=== PATIENT | male | born 1970 ===

== ENCOUNTER → 2020-09-11 16:28 | Outpatient (BNVA) | payer OTHER, SELFPAY | PROVIDERS: Family Provider Family Medicine; PCP Family Medicine; Visit Provider Family Medicine | DX: Z00.00 Encounter for general adult medical examination without abnormal findings; I10 Essential (primary) hypertension; E11.65 Type 2 diabetes mellitus with hyperglycemia | CPT/HCPCS: 80048; 83036 ==

== ENCOUNTER → 2022-06-26 12:07 | Outpatient (BNVA) | payer OTHER, SELFPAY | PROVIDERS: Family Provider Family Medicine; PCP Family Medicine; Visit Provider Family Medicine | DX: E11.65 Type 2 diabetes mellitus with hyperglycemia (principal) | CPT/HCPCS: 80053; 83036 ==

== ENCOUNTER 2023-07-10 16:47 | Emergency (ER) | payer OTHER, SELFPAY ==
[2023-07-10] VITALS (7 sets, daily range): BP systolic 140–211; BP diastolic 94–148; PULSE 76–89; RESP 16–21; TEMP 36.7; O2SAT 94–97; BMI 38.7
[2023-07-10 17:19] LABS: Basophils # 0.1 10^3/uL (0.0-0.1); Basophils % 0.6 %; Eosinophils # 0.2 10^3/uL (0.0-0.8); Eosinophils % 2.8 %; Hematocrit 43.4 % (37-53); Lymphocytes # 1.9 10^3/uL (0.8-4.8); Lymphocytes % 24.1 %; Mean Corpuscular HGB Conc 35.3 g/dL (30-55); Mean Corpuscular Hemoglobin 29.5 pg (27-33); Mean Corpuscular Volume 83.6 fl (82-101); Mean Platelet Volume 9.6 fL (7.4-10.4); Monocytes # 0.5 10^3/uL (0.2-0.9); Monocytes % 6.5 %; Neutrophils # 5.22 10^3/uL (1.8-7.7); Neutrophils % 65.7 %; Nucleated Red Blood Cells % 0 %; Platelet Count 242 10^3/cmm (157-399); Red Blood Count 5.19 10^6/uL (3.85-5.65); Red Cell Distribution Width 12.4 % (12.1-15.1); White Blood Count 7.94 10^3/uL (3.29-11.43)
--- NOTE | 2023-07-10 17:20 | ECG_ITS ---
[facility] Test Date: 2023-07-10 Pat Name: Carlotta Levy Department: Room: Gender: Male [employer]: : 1970 Requested By: Natacha Gill Order Number: [id number] Arthur MD: Micheal Mckenzie M.D. Measurements Intervals Wilson Rate: 81 P: 38 AL: 211 QRS: 3 QRSD: 77 T: 41 QT: 344 QTc: 400 Interpretive Statements SINUS RHYTHM WITH FIRST DEGREE AV BLOCK MODERATE VOLTAGE CRITERIA FOR LVH, CONSIDER NORMAL VARIANT [MEETS CRITERIA IN ONE OF: R(aVL), S(V1), R(V5), R(V5/V6)+S(V1)] No previous ECG available for comparison Electronically Signed On 07-10-2023 21:24:38 CDT by Micheal Mckenzie M.D. [id number]
[2023-07-10] MEDS: labetalol 5 mg/mL SDV 20mL 10 MG IVP (17:29)
--- NOTE | 2023-07-10 17:32 | W.ED.GENADLT ---
HPI - General Adult General: Chief complaint: General Medical Stated complaint: high bp Time Seen by Provider: 07/10/23 17:09 Source: patient Mode of arrival: ambulatory Limitations: no limitations History of Present Illness: 53-year-old male he has a history of high blood pressure he states that he is on hydrochlorothiazide and losartan he states that he is prescribed 50 mg losartan but only takes 25 in the morning. He states that his and got a blood pressure cuff machine he has been taking his blood pressures week and its been running high. Here is 208/118 he states that he had a mild headache yesterday he has had no chest pains states he feels fine otherwise. Associated symptoms: Reports headache(s); Deny chest pain, dyspnea, nausea, rash or vomiting Review of Systems Const: Denies: fever(s) or chills Eyes: Denies: blurry vision ENMT: Denies: throat pain or dental pain Card: Denies: chest pain Resp: Denies: dyspnea GI: Denies: abdominal pain, nausea, vomiting or diarrhea Musc: Denies: neck pain or back pain Skin/Breast: Denies: rash Neuro: Reports: headache(s) [facility] ED PFSH: Medical History Diabetes Hypertension Social History Smoking and tobacco status: never smoked Alcohol intake: never Substance/Drug Use: never Physical Exam Const: COMMON NORMALS: no acute distress, patient oriented x3 and healthy appearing HENMT: COMMON NORMALS: normocephalic and atraumatic HEAD & SCALP: normocephalic and atraumatic Neck/C-Spine: COMMON NORMALS: full ROM and supple Chest: COMMONS NORMALS: normal inspection of the chest and normal palpation of entire chest wall Resp: COMMON NORMALS: normal respiratory effort, No retractions, No use of accessory muscles and clear to auscultation bilaterally AUSCULTATION: clear to auscultation bilaterally Cardio: COMMON NORMALS: regular rate, regular rhythm and No murmurs present (Cardio) RATE: regular rate RHYTHM: regular rhythm GI: COMMON NORMALS: Normal to inspection, nondistended, normoactive bowel sounds present, Soft to palpation, non-tender and no masses PALPATION: Yes Soft to palpation Extremity: COMMON NORMALS: normal to inspection and full ROM Neuro: COMMON NORMALS: patient oriented x3, moves all extremities and no focal motor deficits Psych: COMMON NORMALS: mental status grossly normal, Normal thought process present and cooperative THOUGHT PROCESS: Normal thought process present Skin: COMMON NORMALS: no rashes or lesions noted and no wounds GENERAL SKIN EXAM: no rashes or lesions noted Course Vital Signs: Vital signs: Vital Signs Temperature 98.0 F 07/10/23 16:56 Pulse Rate 85 07/10/23 18:38 Respiratory Rate 17 07/10/23 18:38 Blood Pressure 211/131 07/10/23 18:38 Pulse Oximetry 97 07/10/23 18:38 Oxygen Delivery Me thod Room Air 07/10/23 18:38 MDM - General Adult Medical Decision Making Patient presents with hypertension his blood pressure here is improved he has been asymptomatic we will increase his losartan to 50 mg twice a day he is to keep a log of his blood pressure follow-up with PCP and return if worsening he understands agrees to plan. Medical Records I reviewed the patient's medical records. Lab Data I reviewed the patient's lab results. 07/10/23 17:16 07/10/23 17:16 Laboratory Results WBC 7.94 10^3/uL (3.29-11.43) 07/10/23 17:16 RBC 5.19 10^6/uL (3.85-5.65) 07/10/23 17:16 Hgb 15.30 g/dL (11.27-16.99) 07/10/23 17:16 Hct 43.4 % (37-53) 07/10/23 17:16 MCV 83.6 fl (82-101) 07/10/23 17:16 MCH 29.5 pg (27-33) 07/10/23 17:16 MCHC 35.3 g/dL (30-55) 07/10/23 17:16 RDW 12.4 % (12.1-15.1) 07/10/23 17:16 Plt Count 242 10^3/cmm (157-399) 07/10/23 17:16 MPV 9.6 fL (7.4-10.4) 07/10/23 17:16 Neut % (Auto) 65.7 % 07/10/23 17:16 Lymph % (Auto) 24.1 % 07/10/23 17:16 [place] % (Auto) 6.5 % 07/10/23 17:16 Eos % (Auto) 2.8 % 07/10/23 17:16 Baso % (Auto) 0.6 % 07/10/23 17:16 Neut # (Auto) 5.22 10^3/uL (1.8-7.7) 07/10/23 17:16 Lymph # (Auto) 1.9 10^3/uL (0.8-4.8) 07/10/23 17:16 [place] # (Auto) 0.5 10^3/uL (0.2-0.9) 07/10/23 17:16 Eos # (Auto) 0.2 10^3/uL (0.0-0.8) 07/10/23 17:16 Baso # (Auto) 0.1 10^3/uL (0.0-0.1) 07/10/23 17:16 Nucleated RBC % (auto) 0 % 07/10/23 17:16 Nucleated RBCs # 0.0 /100WBC 07/10/23 17:16 Sodium 137 mmol/L (136-145) 07/10/23 17:16 Potassium 3.7 mmol/L (3.5-5.1) 07/10/23 17:16 Chloride 98 mmol/L (98-107) 07/10/23 17:16 Carbon Dioxide 30 mmol/L (22-29) H 07/10/23 17:16 Anion Gap 12.7 (5-19) 07/10/23 17:16 BUN 15 mg/dL (6-20) 07/10/23 17:16 Creatinine 1.3 mg/dL (0.7-1.2) H 07/10/23 17:16 GFR Calculation 57.3 mL/min (90-130) L 07/10/23 17:16 Glucose 178 mg/dL (65-115) H 07/10/23 17:16 Calculated Osmolality 289 mOsm/kg (285-295) 07/10/23 17:16 Calcium 9.1 mg/dL (8.5-10.5) 07/10/23 17:16 Total Bilirubin 0.3 mg/dL (0.15-1.2) 07/10/23 17:16 AST 19 U/L (0-40) 07/10/23 17:16 ALT 31 U/L (0-41) 07/10/23 17:16 Alkaline Phosphatase 82 U/L (40-130) 07/10/23 17:16 Total Protein 7.5 g/dL (6.6-8.7) 07/10/23 17:16 Albumin 4.5 g/dL (3.5-5.2) 07/10/23 17:16 Globulin 3.0 g/dL (1.3-4.6) 07/10/23 17:16 EKG Data EKG 1: I personally reviewed and interpreted this EKG as follows: EKG interpretation date: 07/10/23 EKG interpretation time: 17:28 Interpretation: nsr hr [address] or t wave abnormalities qrs 77 qtc 381 Discharge Plan Discharge Patient Disposition: Home Clinical Impression: Hypertension Condition: Stable Prescriptions: New losartan 50 mg tablet 50 mg PO BID Qty: 60 0RF Discontinued losartan 50 mg tablet See Rx Instructions .ROUTE .COMPLEX Qty: 90 1RF Dose Instruction: TAKE ONE TABLET BY MOUTH DAILY Rx Instructions: TAKE ONE TABLET BY MOUTH DAILY No Action glipizide 5 mg tablet 5 mg PO BID Qty: 120 1RF hydrochlorothiazide 25 mg tablet See Rx Instructions .ROUTE .COMPLEX Qty: 90 0RF Dose Instruction: TAKE ONE TABLET BY MOUTH EVERY DAY Rx Instructions: TAKE ONE TABLET BY MOUTH EVERY DAY Discharge Orders: Discharge ED (Routine); Ordered 07/10/23 Ordered By: Natacha Gill Referrals: Aj Edward MD [Primary Care Provider] - 1-3 days Discharge Diet: Advance as tolerated Discharge Activity: Resume usual activity Patient Instructions: Hypertension (ED) Coding Level of Care Code ED Track 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
[2023-07-10 17:35] LABS: Alanine Aminotransferase 31 U/L (0-41); Albumin Level 4.5 g/dL (3.5-5.2); Alkaline Phosphatase 82 U/L (40-130); Anion Gap 12.7 (5-19); Aspartate Amino Transferase 19 U/L (0-40); Blood Urea Nitrogen 15 mg/dL (6-20); Calcium 9.1 mg/dL (8.5-10.5); Carbon Dioxide 30 mmol/L (22-29); Chloride 98 mmol/L (98-107); Glomerular Filtration Rate 57.3 mL/min (90-130); Glucose 178 mg/dL (65-115); Osmolality Calculated 289 mOsm/kg (285-295); Potassium 3.7 mmol/L (3.5-5.1); Sodium 137 mmol/L (136-145); Total Bilirubin 0.3 mg/dL (0.15-1.2); Total Protein 7.5 g/dL (6.6-8.7)
[2023-07-10] MEDS: hyDRALAzine 20 mg/mL INJ 1 mL 10 MG IVP (18:20)
== END 2023-07-10 19:24 | disposition home or self-care (01) ==
PROVIDERS: Emergency Provider Emergency Medicine; PCP Family Medicine
DX: I10 Essential (primary) hypertension (principal); Z79.84 Long term (current) use of oral hypoglycemic drugs; E11.9 Type 2 diabetes mellitus without complications
CPT/HCPCS: 80053; 85025; 93005; 96374; 96375; 99284; J0360; J3490